=== PATIENT | female | born 1975 | race Caucasian/White ===

== ENCOUNTER 2017-08-19 23:19 | Emergency (ER) | payer BC ==
[2017-08-19 23:33] VITALS: TEMP 97.4; BMI 29.7
--- NOTE | 2017-08-20 00:07 | PDOC ---
History of Present Illness - General History Source: Patient, Old Records Exam Limitations: No Limitations - History of Present Illness Initial Comments: 08/20/17 04:39 Patient is a 41 year old female with a significant past medical history of HTN, who presents to the ED with complaints of general weakness that began 2 weeks ago. Patient reports going to the park with her daughter when she began to experience sudden general weakness. She reports losing consciousness secondary to weakness stating, i woke up in a hospital bed. Patient reports general weakness has been chronic since beginning, prompting her to come into the ED for further evaluation. She reports experiencing associated left leg pain and increased weakness when walking. Denies nausea, vomiting. Denies head trauma. Denies contact with sick individuals. Denies change in appetite. Denies constipation, diarrhea, dysuria, hematuria. Denies any other symptoms. Allergies: Lisinopril Social history: No smoking. No alcohol. No illicit drugs Surgical history: None PMD: Dr. Knight <Tien Segura - Last Filed: 08/20/17 04:39> <Joan Daily - Last Filed: 08/20/17 06:01> - General Chief Complaint: Chest Pain Stated Complaint: PAIN Time Seen by Provider: 08/19/17 23:53 Past History <Tien Segura - Last Filed: 08/20/17 04:39> - Past Medical History COPD: No HTN: Yes - Immunization History Immunization Up to Date: Yes - Suicide/Smoking/Psychosocial Hx Smoking History: Never smoked Have you smoked in the past 12 months: No Information on smoking cessation initiated: No Hx Alcohol Use: No Drug/Substance Use Hx: No Substance Use Type: None <Joan Daily - Last Filed: 08/20/17 06:01> - Past Medical History Allergies/Adverse Reactions: Allergies Allergy/AdvReac Type Severity Reaction Status Date / Time lisinopril AdvReac Severe Verified 08/19/17 23:33 Home Medications: Ambulatory Orders Bisoprolol-Hctz 10-6.25 mg Tab 1 tab PO DAILY 08/19/17 Review of Systems - Review of Systems Able to Perform ROS?: Yes Comments:: 08/20/17 04:39 GENERAL/CONSTITUTIONAL: +General weakness. No fever or chills. HEAD, EYES, EARS, NOSE AND THROAT: No change in vision. No ear pain or discharge. No sore throat. CARDIOVASCULAR: No chest pain or shortness of breath. RESPIRATORY: No cough, wheezing, or hemoptysis. GASTROINTESTINAL: No nausea, vomiting, diarrhea or constipation. GENITOURINARY: No dysuria, frequency, or change in urination. MUSCULOSKELETAL: No joint or muscle swelling or pain. No neck or back pain. SKIN: No rash NEUROLOGIC: +Loss of consciousness. No headache, vertigo, or change in strength/sensation. ENDOCRINE: No increased thirst. No abnormal weight change. HEMATOLOGIC/LYMPHATIC: No anemia, easy bleeding, or history of blood clots. ALLERGIC/IMMUNOLOGIC: No hives or skin allergy. <Tien Segura - Last Filed: 08/20/17 04:39> *Physical Exam - Vital Signs Last Vital Signs Temp Pulse Resp BP Pulse Ox 97.4 F L 61 17 149/92 100 08/19/17 23:32 08/20/17 02:40 08/20/17 02:40 08/20/17 02:40 08/20/17 02:40 - Physical Exam Comments: 08/20/17 04:39 GENERAL: Awake, alert, and fully oriented, in no acute distress HEAD: No signs of trauma EYES: PERRLA, EOMI, sclera anicteric, conjunctiva clear ENT: Auricles normal inspection, hearing grossly normal, nares patent, oropharynx clear without exudates. Moist mucosa NECK: Normal ROM, supple, no lymphadenopathy, JVD, or masses LUNGS: Breath sounds equal, clear to auscultation bilaterally. No wheezes, and no crackles HEART: Regular rate and rhythm, normal S1 and S2, no murmurs, rubs or gallops ABDOMEN: Soft, nontender, normoactive bowel sounds. No guarding, no rebound. No masses EXTREMITIES: Normal range of motion, no edema. No clubbing or cyanosis. No cords, erythema, or tenderness NEUROLOGICAL: Cranial nerves II through XII grossly intact. Normal speech, normal gait SKIN: Warm, Dry, normal turgor, no rashes or lesions noted. <Tien Segura - Last Filed: 08/20/17 04:39> - Vital Signs Last Vital Signs Temp Pulse Resp BP Pulse Ox 97.4 F L 84 20 153/95 98 08/19/17 23:32 08/19/17 23:32 08/19/17 23:32 08/19/17 23:32 08/19/17 23:32 <Joan Daily - Last Filed: 08/20/17 06:01> ED Treatment Course - LABORATORY CBC & Chemistry Diagram: 08/20/17 00:39 08/20/17 00:39 - ADDITIONAL ORDERS Additional order review: Laboratory Results 08/20/17 08/20/17 08/20/17 00:44 00:39 00:39 Sodium 141 Potassium 3.9 Chloride 107 Carbon Dioxide 24 Anion Gap 10 BUN 20 H Creatinine 0.8 Creat Clearance w eGFR > 60 Random Glucose 109 H Calcium 9.4 Total Bilirubin 0.1 L D AST 17 ALT 26 Alkaline Phosphatase 75 Creatine Kinase 122 Troponin I < 0.02 Total Protein 7.3 Albumin 3.7 Urine Color Straw Urine Appearance Clear Urine pH 5.0 Ur Specific [place] 1.015 Urine Protein Negative Urine Glucose (UA) Negative Urine Ketones Negative Urine Blood 3+ H Urine Nitrite Negative Urine Bilirubin Negative Urine Urobilinogen Negative Ur Leukocyte Esterase Negative Urine WBC (Auto) 1 Urine RBC (Auto) 7 Ur Epithelial Cells Rare Urine Bacteria Rare Hyaline Casts 1 Urine Mucus Rare Urine HCG, Qual Negative Acetone, Qual Negative L 08/20/17 00:39 RBC 4.77 MCV 85.5 MCHC 34.5 RDW 13.6 MPV 9.0 D Neutrophils % 62.4 D Lymphocytes % 22.6 D Monocytes % 9.6 Eosinophils % 4.3 Basophils % 1.1 - Medications Given in the ED: ED Medications Discontinued Medications Generic Name Dose Route Start Last Admin Trade Name Magnoq PRN Reason Stop Dose Admin Sodium Chloride 1,000 ml 08/20/17 00:08 08/20/17 00:51 Normal Saline - IV 08/20/17 00:09 1,000 ml ONCE ONE Administration <Tien Segura - Last Filed: 08/20/17 04:39> - LABORATORY CBC & Chemistry Diagram: 08/20/17 00:39 08/20/17 00:39 <Joan Daily - Last Filed: 08/20/17 06:01> Medical Decision Making - Medical Decision Making 08/20/17 05:59 Pt is very anxious and comes in with multiple complaints including left sided breast pain. SHe is very anxious.'Labs are normal; ekg NSR and she will be discharged home. P understands that she needs to check out her breast pain with her GEOPHYSICAL SUPPORT SPECIALIST and seek ou a mammigram to r/o neoplastic mass. <Joan Daily - Last Filed: 08/20/17 06:01> *DC/Admit/Observation/Transfer - Attestations Scribe Attestion: 08/20/17 04:39 Documentation prepared by Tien Segura, acting as medical office receptionist assistant for Joan Daily MD/DO. <Tien Segura - Last Filed: 08/20/17 04:39> - Discharge Dispostion Admit: No <Joan Daily - Last Filed: 08/20/17 06:01> Diagnosis at time of Disposition: Atypical chest pain - Discharge Dispostion Disposition: HOME Condition at time of disposition: Stable - Patient Instructions Printed Discharge Instructions: DI for Atypical Chest Pain - Post Discharge Activity Forms/Work/School Notes: Back to Work
[2017-08-20] MEDS ORDERED: SODIUM CHLORIDE 0.9% 500 ML INFUS.BAG IV ONE (00:08)
[2017-08-20 00:47] LABS: BASO % 1.1 % (0-2.0); EOS % 4.3 % (0-4.5); HEMATOCRIT 40.8 % (32.4-45.2); HEMOGLOBIN 14.1 GM/dL (10.7-15.3); LYMPH % 22.6 % (8-40); MCH 29.5 pg (25.7-33.7); MCHC 34.5 g/dl (32.0-36.0); MEAN CELL VOLUME 85.5 fl (80-96); MONO % 9.6 % (3.8-10.2); NEUT % 62.4 % (42.8-82.8); PLATELET COUNT 198 K/MM3 (134-434); RBC 4.77 M/mm3 (3.60-5.2); RDW 13.6 % (11.6-15.6); WHITE BLOOD COUNT 9.6 K/mm3 (4.0-10.0)
[2017-08-20 00:59] LABS: HCG,QUALITATIVE URINE NEGATIVE; URINE APPEARANCE CLEAR; URINE BILIRUBIN NEGATIVE (<2.0 mg/dL); URINE BLOOD 3+ (NEGATIVE); URINE COLOR STRAW; URINE GLUCOSE (UA) NEGATIVE (NEGATIVE); URINE KETONE NEGATIVE (NEGATIVE); URINE LEUK ESTERASE NEGATIVE (NEGATIVE); URINE NITRITE NEGATIVE (NEGATIVE); URINE PROTEIN NEGATIVE (NEGATIVE); URINE UROBILINOGEN NEGATIVE mg/dL (0.2-1.0)
[2017-08-20 01:02] LABS: EPI CELLS RARE /HPF (FEW); URINE BACTERIA RARE /hpf (NONE SEEN); URINE HYALINE CAST 1 /lpf; URINE MUCUS RARE
[2017-08-20 01:20] LABS: ALBUMIN 3.7 g/dl (3.4-5.0); ANION GAP 10 (8-16); BILIRUBIN,TOTAL 0.1 mg/dL (0.2-1.0); BLOOD UREA NITROGEN 20 mg/dL (7-18); CALCIUM 9.4 mg/dL (8.5-10.1); CHLORIDE 107 mmol/L (98-107); CO2 24 mmol/L (21-32); CREATININE 0.8 mg/dL (0.55-1.02); GLUCOSE,RANDOM 109 mg/dL (74-106); POTASSIUM 3.9 mmol/L (3.5-5.1); SGOT/AST 17 U/L (15-37); SGPT/ALT 26 U/L (12-78); SODIUM 141 mmol/L (136-145); TOT PROT 7.3 g/dl (6.4-8.2)
[2017-08-20 01:22] LABS: ALK PHOS 75 U/L (45-117)
[2017-08-20 02:41] VITALS: BP 149/92; PULSE 61
--- NOTE | 2017-08-22 09:29 | EKG ---
Test Reason : Blood Pressure : / mmHG Vent. Rate : 064 BPM Atrial Rate : 064 BPM P-R Int : 170 ms QRS Dur : 088 ms QT Int : 410 ms P-R-T Axes : 041 000 032 degrees QTc Int : 422 ms NORMAL SINUS RHYTHM POSSIBLE LEFT ATRIAL ENLARGEMENT BORDERLINE ECG WHEN COMPARED WITH ECG OF 05-MAY-2016 18:32, NO SIGNIFICANT CHANGE WAS FOUND Confirmed by JERE APPIAH MD ([id number]) on 08/22/2017 9:29:29 AM Referred By: Confirmed By:JERE APPIAH MD
== END 2017-08-20 02:41 | disposition home or self-care (01) ==
LOC: JER 23:19
DX: R07.89 Other chest pain (principal); R55 Syncope and collapse
CPT/HCPCS: 36415; 71046-TC-FY; 80053; 81003; 81015; 82009; 82550; 84484; 84703; 85025; 93005; 93010; 99282-25

== ENCOUNTER 2017-12-08 23:49 | Emergency (ER) | payer BC ==
[2017-12-08 23:53] VITALS: BMI 26.2
--- NOTE | 2017-12-09 01:05 | PDOC ---
History of Present Illness - General History Source: Patient Exam Limitations: No Limitations - History of Present Illness Initial Comments: 12/09/17 01:17 The patient is a 41 year old female, with a significant PMH of hypertension, who presents to the emergency department with dry cough for 2 weeks. The patient states today she developed right sided facial pain associated with headache rated 9/10 in intensity 1 hour ago which prompted the ED visit. The patient also endorses an episode of blurry vision earlier today at her brothers house where she states she had trouble reading. The patient reports she has had slight urinary incontinence secondary to her coughing fits. The patient denies chest pain, shortness of breath, and dizziness. Denies fever, chills, nausea, vomit, diarrhea and constipation. Denies dysuria, frequency, urgency and hematuria. Allergies: lisinopril Surgical history: 2 c-sections. <Dwayne Acevedo - Last Filed: 12/09/17 01:17> <Joan aDily - Last Filed: 12/09/17 01:40> - General Chief Complaint: Cold Symptoms Stated Complaint: CHEST PAIN/LEFT SIDE NUMBNESS Time Seen by Provider: 12/09/17 00:17 Past History <Dwayne Acevedo - Last Filed: 12/09/17 01:17> - Past Medical History COPD: No HTN: Yes - Immunization History Immunization Up to Date: Yes - Suicide/Smoking/Psychosocial Hx Smoking History: Never smoked Have you smoked in the past 12 months: No Information on smoking cessation initiated: No Hx Alcohol Use: No Drug/Substance Use Hx: No Substance Use Type: None <Joan Daily - Last Filed: 12/09/17 01:40> - Past Medical History Allergies/Adverse Reactions: Allergies Allergy/AdvReac Type Severity Reaction Status Date / Time lisinopril AdvReac Severe Verified 12/08/17 23:53 Home Medications: Ambulatory Orders Azithromycin [Zithromax Tri-Abdirahman (3 DAYS) -] 500 mg PO DAILY #3 tablet 12/09/17 Bisoprolol/Hydrochlorothiazide [Bisoprolol-Hctz 10-6.25 mg Tab] 1 each PO DAILY 12/09/17 Review of Systems - Review of Systems Comments:: 12/09/17 01:18 GENERAL/CONSTITUTIONAL: No fever or chills. No weakness. HEAD, EYES, EARS, NOSE AND THROAT: (+) Blurred vision (resolved). No ear pain or discharge. No sore throat. CARDIOVASCULAR: No chest pain or shortness of breath. RESPIRATORY: (+) Dry cough. No wheezing,or hemoptysis. GASTROINTESTINAL: No nausea, vomiting, diarrhea or constipation. GENITOURINARY: No dysuria, frequency, or change in urination. MUSCULOSKELETAL: No joint or muscle swelling or pain. No neck or back pain. SKIN: No rash NEUROLOGIC: (+) Headache. No vertigo, loss of consciousness, or change in strength/sensation. ENDOCRINE: No increased thirst. No abnormal weight change. HEMATOLOGIC/LYMPHATIC: No anemia, easy bleeding, or history of blood clots. ALLERGIC/IMMUNOLOGIC: No hives or skin allergy. <Dwayne Acevedo - Last Filed: 12/09/17 01:17> *Physical Exam - Vital Signs Last Vital Signs Temp Pulse Resp BP Pulse Ox 98.3 F 82 20 148/68 98 12/08/17 23:50 12/08/17 23:50 12/08/17 23:50 12/08/17 23:50 12/08/17 23:50 - Physical Exam Comments: 12/09/17 01:20 GENERAL: Awake, alert, and fully oriented, in no acute distress HEAD: No signs of trauma EYES: PERRLA, EOMI, sclera anicteric, conjunctiva clear ENT: Auricles normal inspection, hearing grossly normal, nares patent, oropharynx clear without exudates. Moist mucosa NECK: Normal ROM, supple, no lymphadenopathy, JVD, or masses LUNGS: Breath sounds equal, clear to auscultation bilaterally. No wheezes, and no crackles HEART: Regular rate and rhythm, normal S1 and S2, no murmurs, rubs or gallops ABDOMEN: Soft, nontender, normoactive bowel sounds. No guarding, no rebound. No masses EXTREMITIES: Normal range of motion, no edema. No clubbing or cyanosis. No cords, erythema, or tenderness NEUROLOGICAL: Cranial nerves II through XII grossly intact. Normal speech, normal gait SKIN: Warm, Dry, normal turgor, no rashes or lesions noted. <Dwayne Acevedo - Last Filed: 12/09/17 01:17> - Vital Signs Last Vital Signs Temp Pulse Resp BP Pulse Ox 98.3 F 82 20 148/68 98 12/08/17 23:50 12/08/17 23:50 12/08/17 23:50 12/08/17 23:50 12/08/17 23:50 <Joan Daily - Last Filed: 12/09/17 01:40> ED Treatment Course - ADDITIONAL ORDERS Additional order review: Laboratory Results 12/09/17 00:20 Urine HCG, Qual Negative <Dwayne Acevedo - Last Filed: 12/09/17 01:17> - ADDITIONAL ORDERS Additional order review: Laboratory Results 12/09/17 00:20 Urine HCG, Qual Negative - RADIOLOGY Radiology Studies Ordered: Category Date Time Status CHEST PA & LAT [RAD] Stat Radiology 12/09/17 00:22 Ordered <Joan Daily - Last Filed: 12/09/17 01:40> Medical Decision Making - Medical Decision Making 12/09/17 01:29 Pt comes with multiple complaints. CXR normal, same as old. EKG is NSR UCG neg. Vitals normal. <Joan Daily - Last Filed: 12/09/17 01:40> *DC/Admit/Observation/Transfer - Attestations Scribe Attestion: 12/09/17 01:20 Documentation prepared by Dwayne Acevedo, acting as medical staff specialist for Joan Daily MD. <Dwayne Acevedo - Last Filed: 12/09/17 01:17> - Discharge Dispostion Decision to Admit order: No <Joan Daily - Last Filed: 12/09/17 01:40> Diagnosis at time of Disposition: Post-nasal drip, Atypical pneumonia - Discharge Dispostion Disposition: HOME Condition at time of disposition: Stable - Prescriptions Prescriptions: Azithromycin [Zithromax Tri-Abdirahman (3 DAYS) -] 500 mg PO DAILY #3 tablet - Patient Instructions Printed Discharge Instructions: Atypical Pneumonia
[2017-12-09] MEDS ORDERED: AZITHROMYCIN 250 MG TABLET PO ONE (01:37)
[2017-12-09] MEDS ORDERED: ACETAMINOPHEN WITH CODEINE 300MG/30MG TABLET PO ONE (01:39)
[2017-12-09] MEDS ORDERED: ACETAMINOPHEN WITH CODEINE 300MG/30MG TABLET ONE (01:41)
[2017-12-09] MEDS ORDERED: AZITHROMYCIN 250 MG TABLET ONE (01:42)
[2017-12-09 01:54] VITALS: BP 126/71; PULSE 69; TEMP 98
--- NOTE | 2017-12-09 08:57 | EKG ---
Test Reason : Blood Pressure : / mmHG Vent. Rate : 079 BPM Atrial Rate : 079 BPM P-R Int : 176 ms QRS Dur : 082 ms QT Int : 396 ms P-R-T Axes : 049 -15 049 degrees QTc Int : 454 ms SINUS RHYTHM WITH PREMATURE ATRIAL COMPLEXES POSSIBLE LEFT ATRIAL ENLARGEMENT BORDERLINE ECG WHEN COMPARED WITH ECG OF 19-AUG-2017 23:46, PREMATURE ATRIAL COMPLEXES ARE NOW PRESENT Confirmed by TD LAM, JERE ([id number]) on 12/09/2017 8:56:40 AM Referred By: Confirmed By:JERE APPIAH MD
== END 2017-12-09 01:51 | disposition home or self-care (01) ==
LOC: JER 23:49
DX: J18.9 Pneumonia, unspecified organism (principal); R09.82 Postnasal drip; I10 Essential (primary) hypertension
CPT/HCPCS: 71046-TC-FY; 84703; 93005; 93010; 99281-25

== ENCOUNTER 2018-04-14 07:16 | Emergency (ER) | payer BC ==
[2018-04-14 07:44] VITALS: BP 116/74; PULSE 70; TEMP 98.7; BMI 29.9
--- NOTE | 2018-04-14 08:11 | PDOC ---
History of Present Illness - General Chief Complaint: Sore Throat Stated Complaint: SORE THROAT Time Seen by Provider: 04/14/18 08:11 - History of Present Illness Initial Comments: 04/14/18 08:11 Ms. Song is a 42 yo female w/ pmh of HTN who presents for evaluation of 1 day history of sore throat w/ neck tenderness and cough productive of green sputum x1 day. Patient also endorses subjective fevers/chills as well. No other complaints at this time. The patient denies chest pain, shortness of breath, headache and dizziness. Denies fever, chills, nausea, vomit, diarrhea and constipation. Denies dysuria, frequency, urgency and hematuria. Past History - Past Medical History Allergies/Adverse Reactions: Allergies Allergy/AdvReac Type Severity Reaction Status Date / Time lisinopril AdvReac Severe Verified 04/14/18 07:37 Home Medications: Ambulatory Orders Bisoprolol Fumarate 5 mg PO DAILY 04/14/18 Hydrochlorothiazide [Hctz -] 25 mg PO DAILY 04/14/18 COPD: No HTN: Yes - Immunization History Immunization Up to Date: Yes - Suicide/Smoking/Psychosocial Hx Smoking History: Never smoked Have you smoked in the past 12 months: No Information on smoking cessation initiated: No Hx Alcohol Use: No Drug/Substance Use Hx: No Substance Use Type: None Review of Systems - Review of Systems Comments:: 04/14/18 08:11 GENERAL/CONSTITUTIONAL: +1 day subjective fever/chills. No weakness. HEAD, EYES, EARS, NOSE AND THROAT: No change in vision. No ear pain or discharge. No sore throat. CARDIOVASCULAR: No chest pain or shortness of breath RESPIRATORY: +1 day green productive cough, no wheezing, or hemoptysis. GASTROINTESTINAL: No nausea, vomiting, diarrhea or constipation. GENITOURINARY: No dysuria, frequency, or change in urination. MUSCULOSKELETAL: +Neck soreness x1 day. No joint or muscle swelling or pain. SKIN: No rash NEUROLOGIC: No headache, vertigo, loss of consciousness, or change in strength/ sensation. ENDOCRINE: No increased thirst. No abnormal weight change HEMATOLOGIC/LYMPHATIC: No anemia, easy bleeding, or history of blood clots. ALLERGIC/IMMUNOLOGIC: No hives or skin allergy. *Physical Exam - Vital Signs Last Vital Signs Temp Pulse Resp BP Pulse Ox 98.7 F 70 18 116/74 98 04/14/18 07:37 04/14/18 07:37 04/14/18 07:37 04/14/18 07:37 04/14/18 07:37 - Physical Exam Comments: 04/14/18 08:11 GENERAL: Awake, alert, and fully oriented, in no acute distress HEAD: No signs of trauma, normocephalic, atraumatic EYES: PERRLA, EOMI, sclera anicteric, conjunctiva clear ENT: Auricles normal inspection, hearing grossly normal, nares patent, oropharynx clear without exudates. Moist mucosa NECK: Normal ROM, supple, no lymphadenopathy, JVD, or masses LUNGS: No distress, speaks full sentences, clear to auscultation bilaterally HEART: Regular rate and rhythm, normal S1 and S2, no murmurs, rubs or gallops, peripheral pulses normal and equal bilaterally. ABDOMEN: Soft, nontender, normoactive bowel sounds. No guarding, no rebound. No masses EXTREMITIES: Normal inspection, Normal range of motion, no edema. No clubbing or cyanosis. NEUROLOGICAL: Cranial nerves II through XII grossly intact. Normal speech, normal gait, no focal sensorimotor deficits SKIN: Warm, Dry, normal turgor, no rashes or lesions noted. Moderate Sedation - Procedure Monitoring Vital Signs: Procedure Monitoring Vital Signs Temperature 98.7 F 04/14/18 07:37 Pulse Rate 70 04/14/18 07:37 Respiratory Rate 18 04/14/18 07:37 Blood Pressure 116/74 04/14/18 07:37 O2 Sat by Pulse Oximetry (%) 98 04/14/18 07:37 Medical Decision Making - Medical Decision Making 04/14/18 08:44 Ms. Song is a 42 yo female w/ pmh as described who presents for evaluation of 1 day history of cold-like symptoms. Patient currently well appearing with no concerning findings. Will r/o group A strep and influenza. Plan to d/c for outpatient follow-up given no acute findings. 04/14/18 09:42 Step negative, flu negative. Discharging to home w/ instructions for symptomatic relief. Patient verbalized understanding and agreement and will comply. *DC/Admit/Observation/Transfer Diagnosis at time of Disposition: Cough, Sore throat - Discharge Dispostion Disposition: HOME - Referrals Referrals: ON STAFF,NOT [Primary Care Provider] - - Patient Instructions Printed Discharge Instructions: DI for Common Cold Additional Instructions: You were evaluated today in the ER for your cough and sore throat. We evaluated today in the ER for strep throat as well as flu. No concerning findings were found at this time. You may take over the counter medications per package instructions for symptom relief. Please follow-up with primary care provider later this week for further evaluation. Return to ER if any increase in pain, fever uncontrollable with over the counter medications, or other concerning symptoms. - Post Discharge Activity
--- NOTE | 2018-04-14 08:15 | PDOC ---
Attending Attestation - Resident Resident Name: Quinn Tadeo - ED Attending Attestation I have performed the following: I have examined & evaluated the patient, The case was reviewed & discussed with the resident, I agree w/resident's findings & plan, Exceptions are as noted - HPI HPI: 42 yo F presents with throat pain since yesterday. She states she had a treatment to bleach her teeth that was free. Reports that the pharmacist technician did not use gloves and she was also concerned that multiple people were there. She developed soreness to her throat approximately an hour after arriving back at home. +Cough. No fever. - Physicial Exam PE: GENERAL: Awake, alert, and fully oriented, in no acute distress HEAD: No signs of trauma EYES: PERRLA, EOMI, sclera anicteric, conjunctiva clear ENT: Auricles normal inspection, hearing grossly normal, nares patent, oropharynx clear without exudates. Moist mucosa NECK: Normal ROM, supple, no lymphadenopathy, JVD, or masses LUNGS: Breath sounds equal, clear to auscultation bilaterally. No wheezes, and no crackles HEART: Regular rate and rhythm, normal S1 and S2, no murmurs, rubs or gallops ABDOMEN: Soft, nontender, normoactive bowel sounds. No guarding, no rebound. No masses EXTREMITIES: Normal range of motion, no edema. No clubbing or cyanosis. No cords, erythema, or tenderness NEUROLOGICAL: Cranial nerves II through XII grossly intact. Normal gait. Motor and sensation intact. Voice is noted to be hoarse. SKIN: Warm, Dry, normal turgor, no rashes or lesions noted. - Medical Decision Making Symptoms likely viral in origin. Throat swab pending, flu swab pending. [place] home.
[2018-04-14] MEDS ORDERED: IBUPROFEN 400 MG TABLET (FP) PO ONE ×2 (08:29→08:39)
== END 2018-04-14 09:44 | disposition home or self-care (01) ==
LOC: JER 07:16
DX: J02.9 Acute pharyngitis, unspecified (principal); R05 Cough
CPT/HCPCS: 87070; 87804; 87880; 99282-25

== ENCOUNTER 2018-06-16 08:12 | Emergency (ER) | payer SELFPAY ==
[2018-06-16 08:22] VITALS: BP 126/79; PULSE 74; TEMP 98; BMI 26.6
[2018-06-16] MEDS ORDERED: KETOROLAC TROMETHAMINE 60 MG/2 ML VIAL IM ONE (08:38)
--- NOTE | 2018-06-16 08:38 | PDOC ---
History of Present Illness - General Chief Complaint: Pain Stated Complaint: LT SIDE PAIN Time Seen by Provider: 06/16/18 08:29 History Source: Patient Exam Limitations: No Limitations - History of Present Illness Initial Comments: 06/16/18 08:31 was moving heavy rug last week and sustained an acute injury to hip and back. Now radiating to upper back and neck. Has used hot packs, ibuprofen, rest with minimal resolved. Denies problem with bowel or bladder, no fevers, has never had an injury to her back in the past. 06/16/18 10:01 Occurred: reports: last week Severity: reports: moderate, severe Pain Location: reports: back, neck Modifying Factors: improves with: pain medication Loss of Consciousness: no loss of consciousness Associated Symptoms (Fall): denies symptoms Past History - Travel Traveled outside of the country in the last 30 days: No Close contact w/someone who was outside of country & ill: No - Past Medical History Allergies/Adverse Reactions: Allergies Allergy/AdvReac Type Severity Reaction Status Date / Time lisinopril AdvReac Severe Verified 06/16/18 08:14 Home Medications: Ambulatory Orders Bisoprolol Fumarate 5 mg PO DAILY 04/14/18 Hydrochlorothiazide [Hctz -] 25 mg PO DAILY 04/14/18 Cyclobenzaprine HCl 10 mg PO Q8H PRN #14 tablet 06/16/18 Ibuprofen 400 mg PO Q6H PRN #30 tablet 06/16/18 COPD: No HTN: Yes - Immunization History Immunization Up to Date: Yes - Suicide/Smoking/Psychosocial Hx Smoking History: Unknown if ever smoked Have you smoked in the past 12 months: No Hx Alcohol Use: No Drug/Substance Use Hx: No Substance Use Type: None Review of Systems - Review of Systems Able to Perform ROS?: Yes Is the patient limited [place] proficient: Yes Constitutional: Yes: Symptoms Reported, See HPI, Malaise. No: Chills, Fever HEENTM: Yes: See HPI. No: Symptoms Reported Respiratory: Yes: See HPI. No: Symptoms reported Musculoskeletal: Yes: Symptoms Reported, See HPI, Back Pain, Muscle Pain, Muscle Weakness Neurological: Yes: See HPI. No: Symptoms reported, Headache All Other Systems: Reviewed and Negative *Physical Exam - Vital Signs Last Vital Signs Temp Pulse Resp BP Pulse Ox 98 F 74 20 126/79 99 06/16/18 08:17 06/16/18 08:17 06/16/18 08:17 06/16/18 08:17 06/16/18 08:17 - Physical Exam General Appearance: Yes: Nourished, Appropriately Dressed HEENT: positive: MARK, Normal ENT Inspection, TMs Normal, Pharynx Normal Neck: positive: Tender, Supple (no cervical spine tenderness crepitus or step- offs. But has very tight tense musculature ranging from insertions of sternocleidomastoid and radiating down left side of his back into gluteus area. Mild palpable spasm noted) Respiratory/Chest: positive: Lungs Clear Musculoskeletal: positive: Normal Inspection, Decreased Range of Motion, Muscle Spasm. negative: Vertebral Tenderness Extremity: positive: Normal Capillary Refill Integumentary: positive: Normal Color, Dry, Warm Neurologic: positive: panel fitter II-XII NML intact, Fully Oriented, Alert, Normal Mood/ Affect, Normal Response, Motor Strength 5/5 Moderate Sedation - Procedure Monitoring Vital Signs: Procedure Monitoring Vital Signs Temperature 98 F 06/16/18 08:17 Pulse Rate 74 06/16/18 08:17 Respiratory Rate 20 06/16/18 08:17 Blood Pressure 126/79 06/16/18 08:17 O2 Sat by Pulse Oximetry (%) 99 06/16/18 08:17 Progress Note - Progress Note Progress Note: Back spasm, will treat with NSAIDs and cyclobenzaprine *DC/Admit/Observation/Transfer Diagnosis at time of Disposition: Low back strain Qualifiers: Encounter type: initial encounter Qualified Code(s): S39.012A - Strain of muscle, fascia and tendon of lower back, initial encounter - Discharge Dispostion Disposition: HOME Condition at time of disposition: Stable Decision to Admit order: No - Prescriptions Prescriptions: Cyclobenzaprine HCl 10 mg PO Q8H PRN #14 tablet PRN Reason: spasm Ibuprofen 400 mg PO Q6H PRN #30 tablet PRN Reason: Pain - Referrals - Patient Instructions Printed Discharge Instructions: DI for Back Pain With Sciatica Additional Instructions: Rest, no heavy lifting or exercise until pain is resolved Hot soaks to neck and low back as often as possible/hot showers or Jacuzzis No massage or therapy until spasm is gone Continue ibuprofen 1400 milligrams tablet every 6 hours for the next 3 days then as needed for pain and swelling Cyclobenzaprine 1-10mg every 8 hours as needed for spasm If not significant improvement within 24 hours with medication and rest regime, followup with private physician for change in medications and /or therapy. - Post Discharge Activity Forms/Work/School Notes: Back to Work
[2018-06-16] MEDS ORDERED: KETOROLAC TROMETHAMINE 60 MG/2 ML VIAL ONE (08:39)
== END 2018-06-16 09:15 | disposition home or self-care (01) ==
LOC: JERFT 08:12 → JER 08:12 → JERFT 09:15
PROC: 3E0233Z Introduction of Anti-inflammatory into Muscle, Percutaneous Approach (ICD-10-PCS; principal; 2018-06-16)
DX: S39.012A Strain of muscle, fascia and tendon of lower back, initial encounter (principal); M62.830 Muscle spasm of back; X50.0XXA Overexertion from strenuous movement or load, initial encounter; Y93.89 Activity, other specified; Y92.89 Other specified places as the place of occurrence of the external cause; Y99.8 Other external cause status
CPT/HCPCS: 99281-25

== ENCOUNTER 2022-06-26 02:20 | Emergency (ER) | payer BC ==
[2022-06-26 02:50] VITALS: BP 129/79; PULSE 82; RESP 18; TEMP 98.2; BMI 30.7
[2022-06-26] MEDS ORDERED: FAMOTIDINE 20 MG/50 ML IVPB 20 MG/50 ML MG IVPB ONE ×3 (03:34→03:57)
[2022-06-26] MEDS ORDERED: ACETAMINOPHEN 1000 MG/100 ML BAG IVPB ONE ×2 (03:34→03:57)
[2022-06-26] MEDS ORDERED: MAG HYDROX/AL HYDROX/SIMETH 30 ML UNIT-DOSE CUP PO ONE ×2 (03:34→03:57)
[2022-06-26] MEDS ORDERED: SUCRALFATE 1 GM TABLET (FP) PO ONE (03:38)
[2022-06-26] MEDS ORDERED: ACETAMINOPHEN INJECTION 100 ML IVPB ONE (03:38)
[2022-06-26] MEDS ORDERED: SUCRALFATE 1 GM TABLET (FP) ONE (03:38)
[2022-06-26] MEDS ORDERED: MAG HYDROX/AL HYDROX/SIMETH 30 ML UNIT-DOSE CUP ONE (03:39)
[2022-06-26 04:06] LABS: EOS % 6.5 % (0-4.5); HEMATOCRIT 37.8 % (32.4-45.2); HEMOGLOBIN 12.8 GM/dL (10.7-15.3); LYMPH % 28.8 % (8-40); MCH 28.5 pg (25.7-33.7); MCHC 33.7 g/dl (32.0-36.0); MEAN CELL VOLUME 84.6 fl (80-96); MEAN PLT VOLUME 8.2 fl (7.5-11.1); MONO % 9.4 % (3.8-10.2); NEUT % 54.3 % (42.8-82.8); PLATELET COUNT 201 10^3/uL (134-434); RBC 4.47 M/mm3 (3.60-5.2); WHITE BLOOD COUNT 7.5 K/mm3 (4.0-10.0)
[2022-06-26 04:35] LABS: BLOOD UREA NITROGEN 17.5 mg/dL (7-18)
[2022-06-26 04:36] LABS: ALBUMIN 3.8 g/dl (3.4-5.0)
[2022-06-26 04:38] LABS: CREATININE 0.8 mg/dL (0.55-1.3)
[2022-06-26 04:40] LABS: BILIRUBIN,TOTAL 0.5 mg/dL (0.2-1); TOT PROT 7.1 g/dl (6.4-8.2)
== END 2022-06-26 05:11 | disposition home or self-care (01) ==
LOC: JER 02:20
PROC: 3E0333Z Introduction of Anti-inflammatory into Peripheral Vein, Percutaneous Approach (ICD-10-PCS; principal; 2022-06-26)
PROC: 3E0333Z Introduction of Anti-inflammatory into Peripheral Vein, Percutaneous Approach (ICD-10-PCS; 2022-06-26)
PROC: 3E033GC Introduction of Other Therapeutic Substance into Peripheral Vein, Percutaneous Approach (ICD-10-PCS; 2022-06-26)
DX: K21.9 Gastro-esophageal reflux disease without esophagitis (principal)
CPT/HCPCS: 36415; 80053; 83690; 85025; 93005; 93010; 99284-25